=== PATIENT | male | born 1965 | race Caucasian/White ===

== ENCOUNTER 2021-12-24 15:14 | Emergency (ER) | payer OTHER ==
[~2021-12-24] VITALS: Ht 182.9 cm; Wt 95.5 kg
[~2021-12-24 15:14] MED LIST: NOCURR
[2021-12-24 15:30] VITALS: BP 161/97
== END 2021-12-24 15:49 | disposition left against medical advice (07) ==
LOC: EMS 15:16
DX: S01.352A Open bite of left ear, initial encounter (principal); Y04.1XXA Assault by human bite, initial encounter; Y93.89 Activity, other specified; Y92.89 Other specified places as the place of occurrence of the external cause; Y99.8 Other external cause status; Z53.21 Procedure and treatment not carried out due to patient leaving prior to being seen by health care provider